=== PATIENT | female | born 1980 | race Caucasian/White ===

== ENCOUNTER 2019-02-04 09:23 | Emergency (ER) | payer BC ==
[~2019-02-04] VITALS: Ht 170.2 cm; Wt 95.3 kg
[2019-02-04 09:24] VITALS: BP 146/81
[2019-02-04] MEDS ORDERED: EMGALITY120 MG/1 M SUBQ (09:44)
[2019-02-04] MEDS ORDERED: TOPROL XL25 MG PO (09:45)
[2019-02-04] MEDS ORDERED: RIZATRIPTAN5 MG PO (09:45)
[2019-02-04] MEDS ORDERED: CELEBREX 200 M200 M1 PO (09:45)
[2019-02-04] MEDS ORDERED: OMEPRAZOLE 20 M20 M1 PO (09:46)
[2019-02-04] MEDS ORDERED: LOESTRIN1 EAC1 PO (09:46)
[2019-02-04] MEDS ORDERED: LIPITOR10 MG PO (09:46)
[2019-02-04] MEDS ORDERED: NASCOBAL1 EACH NASAL (09:47)
[2019-02-04] MEDS ORDERED: QUDEXY XR100 MG PO (09:47)
[2019-02-04] MEDS ORDERED: SYNTHROID25 MC1 PO (09:48)
== END 2019-02-04 11:52 | disposition home or self-care (01) ==
LOC: ER 09:23
DX: G43.809 Other migraine, not intractable, without status migrainosus (principal); H57.02 Anisocoria; M79.7 Fibromyalgia; Z88.1 Allergy status to other antibiotic agents; Z88.8 Allergy status to other drugs, medicaments and biological substances